=== PATIENT | male | born 1940 | race Caucasian/White ===

== ENCOUNTER 2018-07-04 12:00 | Inpatient (IN) | payer OTHER ==
[~2018-07-04] VITALS: Ht 175.3 cm; Wt 83.9 kg
[2018-07-04] MEDS ORDERED: [UNRECOGNIZED DRUG - OTHER] PO (13:49)
[2018-07-04] MEDS ORDERED: IBUPROFEN800 MG PO (13:50)
[2018-07-04] MEDS ORDERED: RANITIDINE HCL300 M1 PO (13:51)
[2018-07-04] MEDS ORDERED: OMEPRAZOLE40 MG PO (13:51)
[2018-07-04] MEDS ORDERED: SYNTH PO (13:52)
== END 2018-07-15 19:36 | disposition home or self-care (01) | DRG 330 ==
LOC: O/R 07-06 06:14 → SURG 07-06 06:14 → SURH 07-06 10:15 → SURG 07-06 17:30
PROVIDERS: Colon & Rectal Surgery
PROC: 07TC4ZZ Resection of Pelvis Lymphatic, Percutaneous Endoscopic Approach (ICD-10-PCS; 2018-07-06)
PROC: 0DBU4ZZ Excision of Omentum, Percutaneous Endoscopic Approach (ICD-10-PCS; 2018-07-06)
PROC: 0FQ Hepatobiliary System and Pancreas, Repair (ICD-10-PCS; 2018-07-06)
PROC: 0DTF4ZZ Resection of Right Large Intestine, Percutaneous Endoscopic Approach (ICD-10-PCS; principal; 2018-07-06 10:15)
PROC: 30233N1 Transfusion of Nonautologous Red Blood Cells into Peripheral Vein, Percutaneous Approach (ICD-10-PCS; 2018-07-08)
DX: C18.3 Malignant neoplasm of hepatic flexure (principal); D62 Acute posthemorrhagic anemia; K56.0 Paralytic ileus; K91.89 Other postprocedural complications and disorders of digestive system; R59.0 Localized enlarged lymph nodes; I10 Essential (primary) hypertension

== ENCOUNTER 2019-09-22 06:38 | Day surgery (SDC) | payer OTHER ==
[~2019-09-22 06:38] MED LIST: IBUPROFEN800 MG PO; OMEPRAZOLE40 MG PO; RANITIDINE HCL300 M1 PO; SYNTH PO; [UNRECOGNIZED DRUG - OTHER] PO
== END 2019-09-22 12:15 | disposition home or self-care (01) ==
LOC: AMB-ENDOS 06:38
DX: D12.5 Benign neoplasm of sigmoid colon (principal); D12.7 Benign neoplasm of rectosigmoid junction; D12.8 Benign neoplasm of rectum; K64.1 Second degree hemorrhoids

== ENCOUNTER 2020-11-29 06:00 | Day surgery (SDC) | payer OTHER | END 2020-11-29 10:45 | disposition home or self-care (01) | LOC: AMB-ENDOS 06:00 → ADM 12:45 → AMB-ENDOS 13:00 | PROVIDERS: ATTEND Colon & Rectal Surgery | DX: C18.6 Malignant neoplasm of descending colon (principal); D12.5 Benign neoplasm of sigmoid colon; D12.4 Benign neoplasm of descending colon; K64.2 Third degree hemorrhoids; Z20.828 Contact with and (suspected) exposure to other viral communicable diseases ==